=== PATIENT | male | born 1985 | race Hispanic/Latino ===

== ENCOUNTER → 2017-05-23 | Outpatient (CLI) | payer OTHER | END | disposition home or self-care (01) | LOC: OIH 09:39 | PROVIDERS: ATTEND Family Medicine | DX: Z02.71 Encounter for disability determination (principal); M54.5 Low back pain | CPT/HCPCS: 72100 ==

== ENCOUNTER 2019-11-17 02:14 | Emergency (ER) | payer OTHER ==
[2019-11-17] MEDS ORDERED: ONDANSETRON ODT 4 MG TAB ONE (02:25)
[2019-11-17] MEDS ORDERED: LIDOCAINE HCL 2% VISCOUS 15 ML UDCUP ONE (02:25)
[2019-11-17] MEDS ORDERED: MAG HYDROX/AL HYDROX/SIMETH ES 30 ML SUSP UDCUP ONE (02:25)
== END 2019-11-17 03:57 | disposition home or self-care (01) ==
LOC: EDH 02:14
DX: K21.9 Gastro-esophageal reflux disease without esophagitis (principal); J45.909 Unspecified asthma, uncomplicated
CPT/HCPCS: 93005

== ENCOUNTER 2020-10-01 20:02 | Inpatient (IN) | payer OTHER ==
[~2020-10-01] VITALS: Ht 188 cm; Wt 76.2 kg
[2020-10-01 20:20] VITALS: BP 118/44
[2020-10-01] MEDS ORDERED: VANCOMYCIN PROTOCOL PER PHARMACY IV SCH (20:30)
[2020-10-01] MEDS ORDERED: METOPROLOL TARTRATE 50 MG TAB PO SCH (21:00)
[2020-10-01] MEDS: ATORVASTATIN CALCIUM 40 MG TABLET PO SCH (21:30)
[2020-10-01] MEDS: FUROSEMIDE 10 MG/ML 2ML VIAL IV SCH (21:30)
[2020-10-01] MEDS ORDERED: SODIUM CHLORIDE 0.9% 500ML 500 ML IV SCH (23:00)
[2020-10-02] VITALS (26 sets, daily range): BP systolic 95–174; BP diastolic 30–84
[2020-10-02 02:16] LABS: MEAN CORPUSCULAR HEMOGLOBIN 23.8 pg (27.0-33.0); MEAN CORPUSCULAR HGB CONC 32.1 g/dL (32.0-36.0); MEAN CORPUSCULAR VOLUME 74.2 fL (79-99); PLATELET COUNT (AUTO) 278 K/uL (130-400); RED BLOOD CELL COUNT(AUTO) 4.58 MIL/uL (4.50-6.20); RED CELL DISTRIBUTION WIDTH 13.8 % (11.0-15.5); WHITE BLOOD COUNT (AUTO) 9.4 K/uL (4.8-10.8)
[2020-10-02 02:30] LABS: INR 1.21 (0.85-1.15)
[2020-10-02 02:31] LABS: PARTIAL THROMBOPLASTIN TIME 29.3 SEC (26.3-35.5)
[2020-10-02 02:38] LABS: BILIRUBIN,TOTAL 0.5 mg/dL (0.2-1.0); POTASSIUM 3.6 mmol/L (3.5-5.1)
[2020-10-02 02:39] LABS: ALBUMIN 2.5 g/dL (3.5-5.0); TOTAL PROTEIN, SERUM 6.6 g/dL (6.0-8.3); VANCOMYCIN LEVEL 7.6 mcg/mL (18.0-26.0)
[2020-10-02] MEDS ORDERED: COMPOUND IV REFRIGERATED 1 EACH IVSOLN MISC PRN (06:45)
[2020-10-02] MEDS ORDERED: NITROGLYCERIN 2 MG/VIAL VIAL IV ONE (07:12)
[2020-10-02] MEDS ORDERED: MIDAZOLAM HCL 1 MG/ML 2ML VIAL ONE ×2 (07:13→13:17)
[2020-10-02] MEDS ORDERED: IOHEXOL-350 50ML VIAL IV ONE (07:13)
[2020-10-02] MEDS ORDERED: IOHEXOL-350 75 ML VIAL IV ONE (07:13)
[2020-10-02] MEDS ORDERED: LIDOCAINE HCL 400MG/20ML VIAL ONE (07:14)
[2020-10-02] MEDS ORDERED: FENTANYL CITRATE PF 50 MCG/1 ML 2ML VIAL ONE (07:14)
[2020-10-02] MEDS ORDERED: NICARDIPINE HCL 25 MG/10 ML ML IV ONE (07:36)
[2020-10-02] MEDS ORDERED: HEPARIN SODIUM 1000UNIT/ML 10ML VIAL ONE ×2 (07:51→13:16)
[2020-10-02] MEDS: FUROSEMIDE 10 MG/ML 2ML VIAL IV SCH ×2 (07:58→20:13)
[2020-10-02] MEDS ORDERED: LISINOPRIL 2.5 MG TABLET PO SCH (09:00)
[2020-10-02] MEDS ORDERED: EPINEPHRINE 10 MG in SODIUM CHLORIDE 0.9% 240 ML IV PRN (10:00)
[2020-10-02] MEDS ORDERED: AMINOCAPROIC ACID 15,000 MG in SODIUM CHLORIDE 0.9% 500ML 420 ML IV PRN (10:00)
[2020-10-02] MEDS ORDERED: NOREPINEPHRINE BITARTRATE 8 MG in DEXTROSE 5%-WATER 250 ML IV PRN (10:00)
[2020-10-02] MEDS ORDERED: NITROGLYCERIN 50 MG/D5% WATER 1 BOT ONE (12:55)
[2020-10-02] MEDS ORDERED: NOREPINEPHRINE BITARTRATE 1 MG/1 ML ML IV ONE (13:16)
[2020-10-02] MEDS ORDERED: SODIUM BICARB 50MEQ 50ML VIAL 150 ML ONE (13:16)
[2020-10-02] MEDS ORDERED: PROPOFOL 10 MG/ML 20ML VIAL IV ONE (13:16)
[2020-10-02] MEDS ORDERED: PROTAMINE SULFATE 10 MG/ML 25ML VIAL IV ONE ×2 (13:16→17:57)
[2020-10-02] MEDS ORDERED: FENTANYL CITRATE PF 50 MCG/1 ML 20ML VIAL IJ ONE (13:16)
[2020-10-02] MEDS ORDERED: LIDOCAINE PF 100MG/5ML (2%) SYRINGE 5ML ONE (13:16)
[2020-10-02] MEDS ORDERED: EPINEPHRINE 1 MG/ML AMPULE ONE (13:16)
[2020-10-02] MEDS ORDERED: ESMOLOL HCL 10 MG/ML 10 ML VIAL ONE (13:16)
[2020-10-02] MEDS ORDERED: AMINOCAPROIC ACID 250 MG/ML 20 ML VIAL ONE (13:16)
[2020-10-02] MEDS ORDERED: ROCURONIUM 10MG/1ML SYR 10 MG/ML ML ONE (13:17)
[2020-10-02] MEDS ORDERED: KETAMINE 50MG/ML SYRINGE 50 MG/ML DISP.SYRIN IV ONE (13:17)
[2020-10-02] MEDS ORDERED: CEFAZOLIN SODIUM 1 GM VIAL ONE (14:29)
[2020-10-02] MEDS ORDERED: DELNIDO FORMULA 2 BAG IV ONE (14:51)
[2020-10-02 15:03] LABS: ABG BASE EXCESS -3.8 mmol/L (-2.0-3.0); ABG HCO3 19.2 mmol/L (21.0-28.0); ABG OXYGEN SATURATION 99.1 % (95.0-99.0); ABG PCO2 29 mmHg (35-48)
[2020-10-02] MEDS ORDERED: DEXTROSE 50%-WATER 50 ML DISP.SYRIN IV PRN (15:15)
[2020-10-02] MEDS ORDERED: NITROGLYCERIN 50 MG/D5% WATER 250 BOT IV SCH (15:15)
[2020-10-02] MEDS ORDERED: SODIUM BICARB 50MEQ 50ML VIAL IV PRN (15:15)
[2020-10-02] MEDS ORDERED: SODIUM CHLORIDE 0.9% 10 ML VIAL IVP PRN (15:15)
[2020-10-02] MEDS ORDERED: AMINOCAPROIC ACID 15,000 MG in SODIUM CHLORIDE 0.9% 250 ML IV SCH (15:15)
[2020-10-02] MEDS ORDERED: GLUCAGON 1MG KIT 1 MG ML IM PRN (15:15)
[2020-10-02] MEDS ORDERED: EPINEPHRINE 10 MG in DEXTROSE 5%-WATER 250 ML IV PRN (15:15)
[2020-10-02] MEDS ORDERED: ACETAMINOPHEN 650 MG SUPPOSITORY RC PRN (15:15)
[2020-10-02] MEDS ORDERED: MORPHINE SULFATE 4 MG/1ML SYG IV PRN (15:15)
[2020-10-02] MEDS ORDERED: ACETAMINOPHEN 325 MG TAB PO PRN (15:15)
[2020-10-02] MEDS ORDERED: ALBUMIN (HUMAN) 5% 250 ML IV PRN (15:15)
[2020-10-02] MEDS ORDERED: POTASSIUM PHOS 15 mMOL+NS250ML 250 ML IV PRN (15:15)
[2020-10-02] MEDS ORDERED: MAGNESIUM 2GM PREMIX 50ML 50 ML IV PRN (15:15)
[2020-10-02] MEDS ORDERED: NOREPINEPHRINE 4MG/NS 250ML 250 ML IV PRN (15:15)
[2020-10-02] MEDS ORDERED: MORPHINE SULFATE 2 MG/ML 1ML SYG IV PRN (15:15)
[2020-10-02] MEDS ORDERED: TRAMADOL HCL 50 MG TABLET PO PRN (15:15)
[2020-10-02] MEDS ORDERED: INSULIN REGULAR, HUMAN 3ML 100 UNIT in SODIUM CHLORIDE 0.9% 99 ML IV SCH ×2 (15:15)
[2020-10-02] MEDS ORDERED: SODIUM CHLORIDE 0.9% 500ML 500 ML IV SCH (15:15)
[2020-10-02] MEDS ORDERED: PROPOFOL 1000 MG/100 ML 100 ML IV PRN (15:15)
[2020-10-02 15:53] LABS: ABG BASE EXCESS -2.1 mmol/L (-2.0-3.0); ABG HCO3 20.6 mmol/L (21.0-28.0); ABG OXYGEN SATURATION 98.5 % (95.0-99.0); ABG PCO2 28 mmHg (35-48)
[2020-10-02] MEDS ORDERED: AMIODARONE HCL 50 MG/ML 3 ML VIAL ONE (16:46)
[2020-10-02] MEDS ORDERED: PROTAMINE SULFATE 10 MG/ML 5 ML VIAL ONE (16:46)
[2020-10-02 16:52] LABS: ABG BASE EXCESS 4.2 mmol/L (-2.0-3.0); ABG HCO3 26.1 mmol/L (21.0-28.0); ABG OXYGEN SATURATION 98.6 % (95.0-99.0); ABG PCO2 30 mmHg (35-48)
[2020-10-02] MEDS ORDERED: Q-PUMP 1 EACH IRRIG SCH (17:00)
[2020-10-02 17:47] LABS: ABG BASE EXCESS -7.4 mmol/L (-2.0-3.0); ABG HCO3 17.9 mmol/L (21.0-28.0); ABG PCO2 36 mmHg (35-48)
[2020-10-02 18:14] LABS: HEMATOCRIT 30.1 % (42-54); MEAN CORPUSCULAR HEMOGLOBIN 23.7 pg (27.0-33.0); MEAN CORPUSCULAR HGB CONC 32.2 g/dL (32.0-36.0); MEAN CORPUSCULAR VOLUME 73.6 fL (79-99); RED BLOOD CELL COUNT(AUTO) 4.09 MIL/uL (4.50-6.20); RED CELL DISTRIBUTION WIDTH 13.8 % (11.0-15.5); WHITE BLOOD COUNT (AUTO) 28.3 K/uL (4.8-10.8)
[2020-10-02 18:32] LABS: INR 1.38 (0.85-1.15); PROTHROMBIN TIME 14.6 SEC (9.6-11.6)
[2020-10-02 18:33] LABS: PARTIAL THROMBOPLASTIN TIME 27.8 SEC (26.3-35.5)
[2020-10-02 18:39] LABS: ABG BASE EXCESS -1.2 mmol/L (-2.0-3.0); ABG HCO3 24.3 mmol/L (21.0-28.0); ABG OXYGEN SATURATION 98.4 % (95.0-99.0); ABG PCO2 44 mmHg (35-48)
[2020-10-02 18:43] LABS: PHOSPHORUS 5.7 mg/dL (2.5-4.9); POTASSIUM 4.3 mmol/L (3.5-5.1)
[2020-10-02] MEDS: LEVOFLOXACIN 750 MG TABLET PO SCH (19:00)
[2020-10-02] MEDS: VANCOMYCIN 1.25 GM in SODIUM CHLORIDE 0.9% 250 ML IV SCH ×2 (19:00→22:18)
[2020-10-02] MEDS: CEFEPIME HCL 1 GM VIAL IVP SCH ×2 (19:00→20:12)
[2020-10-02] MEDS: SODIUM CHLORIDE 0.9% 1000ML 1,000 ML IV SCH (19:00)
[2020-10-02] MEDS: ASPIRIN 81MG TAB.CHEW PO SCH (19:00)
[2020-10-02 19:36] LABS: ABG BASE EXCESS 0.7 mmol/L (-2.0-3.0); ABG HCO3 25.9 mmol/L (21.0-28.0); ABG OXYGEN SATURATION 97.2 % (95.0-99.0); ABG PCO2 44 mmHg (35-48)
[2020-10-02] MEDS: ATORVASTATIN CALCIUM 40 MG TABLET PO SCH (20:12)
[2020-10-02] MEDS: FAMOTIDINE/PF 20 MG/2 ML VIAL IV SCH (20:13)
[2020-10-02] MEDS: ACETAMINOPHEN 325 MG TAB PO PRN (20:18)
[2020-10-02 20:42] LABS: ABG BASE EXCESS 1.3 mmol/L (-2.0-3.0); ABG HCO3 25.9 mmol/L (21.0-28.0); ABG OXYGEN SATURATION 97.8 % (95.0-99.0); ABG PCO2 41 mmHg (35-48)
[2020-10-02] MEDS: CALCIUM GLUCONATE 1 GM in SODIUM CHLORIDE 0.9% 50 ML IV PRN ×2 (20:46→22:40)
[2020-10-02 21:16] LABS: ABG BASE EXCESS 2.4 mmol/L (-2.0-3.0); ABG HCO3 26.3 mmol/L (21.0-28.0); ABG OXYGEN SATURATION 98.5 % (95.0-99.0); ABG PCO2 39 mmHg (35-48)
[2020-10-02 22:39] LABS: ABG OXYGEN SATURATION 98.7 % (95.0-99.0); ABG PCO2 38 mmHg (35-48)
[2020-10-02] MEDS: POTASSIUM CHLORIDE 20MEQ/100ML 100 ML IV PRN (23:06)
[2020-10-02] MEDS: ONDANSETRON HCL 4 MG/2 ML VIAL IV PRN (23:26)
[2020-10-03] VITALS (30 sets, daily range): BP systolic 103–163; BP diastolic 47–77
[2020-10-03] MEDS: TRAMADOL HCL 50 MG TABLET PO PRN (00:12)
[2020-10-03 03:55] LABS: MEAN CORPUSCULAR HEMOGLOBIN 23.1 pg (27.0-33.0); MEAN CORPUSCULAR HGB CONC 31.2 g/dL (32.0-36.0); MEAN CORPUSCULAR VOLUME 74.2 fL (79-99); RED BLOOD CELL COUNT(AUTO) 4.45 MIL/uL (4.50-6.20); RED CELL DISTRIBUTION WIDTH 13.7 % (11.0-15.5); WHITE BLOOD COUNT (AUTO) 23.9 K/uL (4.8-10.8)
[2020-10-03 04:06] LABS: ABG BASE EXCESS 1.1 mmol/L (-2.0-3.0); ABG HCO3 25.1 mmol/L (21.0-28.0); ABG PCO2 38 mmHg (35-48)
[2020-10-03 04:07] LABS: INR 1.2 (0.85-1.15); PROTHROMBIN TIME 12.9 SEC (9.6-11.6)
[2020-10-03 04:08] LABS: PARTIAL THROMBOPLASTIN TIME 26.8 SEC (26.3-35.5)
[2020-10-03 04:13] LABS: PHOSPHORUS 4.3 mg/dL (2.5-4.9); POTASSIUM 4.4 mmol/L (3.5-5.1)
[2020-10-03] MEDS: CEFEPIME HCL 1 GM VIAL IVP SCH ×3 (06:02→21:30)
[2020-10-03] MEDS: FUROSEMIDE 10 MG/ML 2ML VIAL IV SCH ×2 (08:58→21:27)
[2020-10-03] MEDS: FAMOTIDINE/PF 20 MG/2 ML VIAL IV SCH ×2 (08:59→21:28)
[2020-10-03] MEDS: ASPIRIN 81MG TAB.CHEW PO SCH (09:00)
[2020-10-03] MEDS: VANCOMYCIN 1.25 GM in SODIUM CHLORIDE 0.9% 250 ML IV SCH ×2 (09:00→21:29)
[2020-10-03] MEDS: LEVOFLOXACIN 750 MG TABLET PO SCH (09:00)
[2020-10-03] MEDS ORDERED: GUAI100S13 PO (09:10)
[2020-10-03] MEDS: ONDANSETRON HCL 4 MG/2 ML VIAL IV PRN (14:27)
[2020-10-03] MEDS: SODIUM CHLORIDE 0.9% 1000ML 1,000 ML IV SCH (15:15)
[2020-10-03] MEDS: ACETAMINOPHEN 325 MG TAB PO PRN (18:49)
[2020-10-03] MEDS: ATORVASTATIN CALCIUM 40 MG TABLET PO SCH (21:28)
[2020-10-04] VITALS (23 sets, daily range): BP systolic -14–186; BP diastolic -15–88
[2020-10-04] MEDS: ACETAMINOPHEN 325 MG TAB PO PRN ×2 (02:15→12:46)
[2020-10-04 04:28] LABS: HEMATOCRIT 27.5 % (42-54); MEAN CORPUSCULAR HEMOGLOBIN 23.2 pg (27.0-33.0); MEAN CORPUSCULAR HGB CONC 31.3 g/dL (32.0-36.0); MEAN CORPUSCULAR VOLUME 74.1 fL (79-99); RED BLOOD CELL COUNT(AUTO) 3.71 MIL/uL (4.50-6.20); RED CELL DISTRIBUTION WIDTH 13.9 % (11.0-15.5); WHITE BLOOD COUNT (AUTO) 11.5 K/uL (4.8-10.8)
[2020-10-04 04:51] LABS: CREATININE 0.8 mg/dL (0.5-1.5); POTASSIUM 3.6 mmol/L (3.5-5.1)
[2020-10-04] MEDS: CEFEPIME HCL 1 GM VIAL IVP SCH ×3 (05:39→22:26)
[2020-10-04] MEDS: POTASSIUM CHLORIDE 20MEQ/100ML 100 ML IV PRN (05:39)
[2020-10-04] MEDS ORDERED: POTASSIUM CHLORIDE 20 MEQ ERTAB PO PRN (07:45)
[2020-10-04] MEDS: ASPIRIN 81MG TAB.CHEW PO SCH (08:55)
[2020-10-04] MEDS: LEVOFLOXACIN 750 MG TABLET PO SCH (08:56)
[2020-10-04] MEDS: FUROSEMIDE 10 MG/ML 2ML VIAL IV SCH ×2 (08:56→20:54)
[2020-10-04] MEDS: FAMOTIDINE 20MG TAB 20 MG TAB PO SCH ×2 (08:56→20:55)
[2020-10-04] MEDS: VANCOMYCIN 1.25 GM in SODIUM CHLORIDE 0.9% 250 ML IV SCH ×2 (08:56→20:53)
[2020-10-04] MEDS: TRAMADOL HCL 50 MG TABLET PO PRN (12:46)
[2020-10-04] MEDS: ONDANSETRON HCL 4 MG/2 ML VIAL IV PRN ×2 (12:46→14:39)
[2020-10-04] MEDS ORDERED: MIDAZOLAM 100MG-0.9% NS 100ML 100 ML IV ONE (13:55)
[2020-10-04] MEDS: ATORVASTATIN CALCIUM 40 MG TABLET PO SCH (20:55)
[2020-10-04] MEDS: CARVEDILOL 3.125 MG TABLET PO SCH (20:55)
[2020-10-04] MEDS ORDERED: LOSARTAN 50 MG TABLET PO SCH (21:00)
[2020-10-05] VITALS (14 sets, daily range): BP systolic 108–126; BP diastolic 52–73
[2020-10-05 04:32] LABS: HEMATOCRIT 30.2 % (42-54); MEAN CORPUSCULAR HEMOGLOBIN 23.3 pg (27.0-33.0); MEAN CORPUSCULAR HGB CONC 31.1 g/dL (32.0-36.0); MEAN CORPUSCULAR VOLUME 74.8 fL (79-99); RED BLOOD CELL COUNT(AUTO) 4.04 MIL/uL (4.50-6.20); RED CELL DISTRIBUTION WIDTH 13.9 % (11.0-15.5); WHITE BLOOD COUNT (AUTO) 11.9 K/uL (4.8-10.8)
[2020-10-05 04:48] LABS: CREATININE 0.7 mg/dL (0.5-1.5); POTASSIUM 3.8 mmol/L (3.5-5.1)
[2020-10-05] MEDS: ASPIRIN 81MG TAB.CHEW PO SCH (08:38)
[2020-10-05] MEDS: FAMOTIDINE 20MG TAB 20 MG TAB PO SCH ×2 (08:39→20:06)
[2020-10-05] MEDS: FUROSEMIDE 10 MG/ML 2ML VIAL IV SCH ×2 (08:39→20:05)
[2020-10-05] MEDS: CARVEDILOL 3.125 MG TABLET PO SCH ×2 (08:39→20:06)
[2020-10-05] MEDS: CEFEPIME HCL 1 GM VIAL IVP SCH ×3 (08:39→20:57)
[2020-10-05] MEDS: LEVOFLOXACIN 750 MG TABLET PO SCH (08:40)
[2020-10-05 08:44] LABS: INR 1.1 (0.85-1.15); PROTHROMBIN TIME 11.9 SEC (9.6-11.6)
[2020-10-05 08:45] LABS: PARTIAL THROMBOPLASTIN TIME 28.5 SEC (26.3-35.5)
[2020-10-05] MEDS: VANCOMYCIN 1.5 GM in SODIUM CHLORIDE 0.9% 250 ML IV SCH ×2 (09:46→20:57)
[2020-10-05] MEDS: ACETAMINOPHEN 325 MG TAB PO PRN (10:35)
[2020-10-05] MEDS: WARFARIN SODIUM 5 MG TAB PO SCH (17:34)
[2020-10-05] MEDS: ATORVASTATIN CALCIUM 40 MG TABLET PO SCH (20:06)
[2020-10-06] VITALS (7 sets, daily range): BP systolic 81–122; BP diastolic 62–72
[2020-10-06] MEDS: ACETAMINOPHEN 325 MG TAB PO PRN (00:38)
[2020-10-06] MEDS: ONDANSETRON HCL 4 MG/2 ML VIAL IV PRN (00:55)
[2020-10-06 04:14] LABS: HEMATOCRIT 27.3 % (42-54); MEAN CORPUSCULAR HEMOGLOBIN 24.1 pg (27.0-33.0); MEAN CORPUSCULAR HGB CONC 32.2 g/dL (32.0-36.0); MEAN CORPUSCULAR VOLUME 74.8 fL (79-99); RED BLOOD CELL COUNT(AUTO) 3.65 MIL/uL (4.50-6.20); RED CELL DISTRIBUTION WIDTH 14.1 % (11.0-15.5); WHITE BLOOD COUNT (AUTO) 10.4 K/uL (4.8-10.8)
[2020-10-06 04:33] LABS: CREATININE 0.7 mg/dL (0.5-1.5); POTASSIUM 3.4 mmol/L (3.5-5.1)
[2020-10-06] MEDS: POTASSIUM CHLORIDE 20MEQ/100ML 100 ML IV PRN (04:41)
[2020-10-06] MEDS: CEFEPIME HCL 1 GM VIAL IVP SCH ×3 (05:34→20:17)
[2020-10-06] MEDS: FUROSEMIDE 10 MG/ML 2ML VIAL IV SCH ×2 (09:08→20:16)
[2020-10-06] MEDS: LEVOFLOXACIN 750 MG TABLET PO SCH (09:08)
[2020-10-06] MEDS: ASPIRIN 81MG TAB.CHEW PO SCH (09:09)
[2020-10-06] MEDS: CARVEDILOL 3.125 MG TABLET PO SCH ×2 (09:09→20:17)
[2020-10-06] MEDS: FAMOTIDINE 20MG TAB 20 MG TAB PO SCH ×2 (09:09→20:16)
[2020-10-06 09:22] LABS: INR 1.12 (0.85-1.15); PROTHROMBIN TIME 12.1 SEC (9.6-11.6)
[2020-10-06] MEDS: VANCOMYCIN 1.5 GM in SODIUM CHLORIDE 0.9% 250 ML IV SCH ×2 (09:34→22:30)
[2020-10-06] MEDS ORDERED: ENOXAPARIN SODIUM 1 MG/KG SQ SCH (10:45)
[2020-10-06] MEDS ORDERED: ENOXAPARIN SODIUM 80 MG/0.8 ML SQ SCH (10:45)
[2020-10-06] MEDS ORDERED: SENNOSIDES 8.6 MG TABLET PO SCH (15:00)
[2020-10-06] MEDS ORDERED: LACTULOSE 20 GM/30 ML UDCUP PO PRN (15:00)
[2020-10-06] MEDS: WARFARIN SODIUM 5 MG TAB PO SCH (16:00)
[2020-10-06] MEDS: ATORVASTATIN CALCIUM 40 MG TABLET PO SCH (20:16)
[2020-10-06] MEDS: SENNOSIDES 8.6 MG TABLET PO SCH (20:17)
[2020-10-07 03:20] VITALS: BP 114/58
[2020-10-07 03:48] LABS: BASOPHILS % (AUTO) 0.5 % (0.0-5.0); EOSINOPHILS % (AUTO) 2.9 % (0.0-8.0); HEMATOCRIT 29.1 % (42-54); LYMPHOCYTES % (AUTO) 11.5 % (21.0-51.0); MEAN CORPUSCULAR HEMOGLOBIN 23.6 pg (27.0-33.0); MEAN CORPUSCULAR HGB CONC 31.6 g/dL (32.0-36.0); MEAN CORPUSCULAR VOLUME 74.6 fL (79-99); MONOCYTES % (AUTO) 4.2 % (3.0-13.0); NEUTROPHILS % (AUTO) 79.2 % (40.0-77.0); PLATELET COUNT (AUTO) 344 K/uL (130-400); RED CELL DISTRIBUTION WIDTH 14.3 % (11.0-15.5)
[2020-10-07 03:55] LABS: CREATININE 0.8 mg/dL (0.5-1.5); POTASSIUM 3.6 mmol/L (3.5-5.1)
[2020-10-07 03:58] LABS: INR 1.17 (0.85-1.15); PROTHROMBIN TIME 12.6 SEC (9.6-11.6)
[2020-10-07] MEDS: POTASSIUM CHLORIDE 20MEQ/100ML 100 ML IV PRN (04:43)
[2020-10-07] MEDS: CEFEPIME HCL 1 GM VIAL IVP SCH ×2 (04:44→13:57)
[2020-10-07] MEDS: VANCOMYCIN 1.5 GM in SODIUM CHLORIDE 0.9% 250 ML IV SCH ×2 (07:20→13:57)
[2020-10-07 07:49] VITALS: BP 114/73
[2020-10-07] MEDS: CARVEDILOL 3.125 MG TABLET PO SCH (08:39)
[2020-10-07] MEDS: FUROSEMIDE 10 MG/ML 2ML VIAL IV SCH (08:39)
[2020-10-07] MEDS: FAMOTIDINE 20MG TAB 20 MG TAB PO SCH (08:39)
[2020-10-07] MEDS: ASPIRIN 81MG TAB.CHEW PO SCH (08:40)
[2020-10-07] MEDS: SENNOSIDES 8.6 MG TABLET PO SCH (08:43)
[2020-10-07] MEDS: LEVOFLOXACIN 750 MG TABLET PO SCH (09:01)
[2020-10-07] MEDS ORDERED: FUROSEMIDE 20 MG TABLET PO SCH (10:23)
[2020-10-07] MEDS ORDERED: SENNOSIDES 8.6 MG TABLET PO SCH (11:15)
[2020-10-07 11:39] VITALS: BP 115/76
[2020-10-07 15:47] VITALS: BP 109/64
[2020-10-07] MEDS ORDERED: WARFARIN SODIUM 10 MG TABLET PO SCH (16:00)
== END 2020-10-07 17:05 | DRG 216 ==
LOC: 4BH 20:02 → 2CV 10-02 16:17 → 2CH 10-03 03:00 → 2DH 10-05 14:02
PROVIDERS: ADMIT Internal Medicine; ATTEND Internal Medicine
PROC: B2111ZZ Fluoroscopy of Multiple Coronary Arteries using Low Osmolar Contrast (ICD-10-PCS; 2020-10-02)
PROC: 5A1221Z Performance of Cardiac Output, Continuous (ICD-10-PCS; 2020-10-02)
PROC: B24BZZ4 Ultrasonography of Heart with Aorta, Transesophageal (ICD-10-PCS; 2020-10-02)
PROC: 4A023N7 Measurement of Cardiac Sampling and Pressure, Left Heart, Percutaneous Approach (ICD-10-PCS; principal; 2020-10-02 10:00)
PROC: 02RF0JZ Replacement of Aortic Valve with Synthetic Substitute, Open Approach (ICD-10-PCS; 2020-10-02 10:00)
PROC: 05HY33Z Insertion of Infusion Device into Upper Vein, Percutaneous Approach (ICD-10-PCS; 2020-10-06)
DX: I33.9 Acute and subacute endocarditis, unspecified (principal); I50.21 Acute systolic (congestive) heart failure; I42.0 Dilated cardiomyopathy; R78.81 Bacteremia; D62 Acute posthemorrhagic anemia; I35.1 Nonrheumatic aortic (valve) insufficiency; I11.0 Hypertensive heart disease with heart failure; R53.81 Other malaise; Z79.899 Other long term (current) drug therapy; Z74.01 Bed confinement status; Z79.01 Long term (current) use of anticoagulants; Z79.82 Long term (current) use of aspirin; Z83.3 Family history of diabetes mellitus; Z82.49 Family history of ischemic heart disease and other diseases of the circulatory system
CPT/HCPCS: 36415; 71045; 80048; 80053; 80202; 82435; 82803; 82947; 82948; 83605; 83735; 84100; 84132; 84295; 85018; 85025; 85027; 85347; 85610; 85730; 86850; 86900; 86901; 86922; 87040; 87070; 87076; 87101; 87116; 87206; 93005; 93313; 93318; 93454; 93880; 94002; 94010; 94150; 97039; 99156; 99157; A7048; C1751; C1769; C1894; G0378; J0171; J0282; J0690; J0692; J1644; J1815; J1940; J2001; J2250; J2270; J2405; J2704; J2720; J3010; J3370; J3480; J3490; J7030; J7040; J7050; Q9967

== ENCOUNTER → 2022-08-31 | Outpatient (CLI) | payer OTHER ==
[~2022-08-31] MED LIST: GUAI100S13 PO
== END | disposition home or self-care (01) ==
LOC: LAB 11:53
PROVIDERS: ATTEND Internal Medicine Cardiovascular Disease
DX: R07.9 Chest pain, unspecified (principal)
CPT/HCPCS: 36415; 85651; 86140